=== PATIENT | female | born 1970 | race Caucasian/White ===

== ENCOUNTER 2017-10-21 12:04 | Emergency (ER) | payer BC ==
[~2017-10-21] VITALS: Ht 160 cm; Wt 100.0 kg
[~2017-10-21 12:04] MED LIST: DILANTIN100 MG PO; DIOVAN HCT 3201 EACH PO; FLOMAX0.4 MG PO; FLURBIPROFEN PO; IBUPROFEN800 MG PO; KEPPRA500 MG PO; LOSARTAN-HCTZ1 EAC1 PO; NAPROSYN500 MG PO; PEN-VEE K,VEET500 MG PO; PERCOCET 5/31 TABLET PO; PHENOBARBITAL100 MG; PHENOBARBITAL100 MG PO; PHENOBARBITAL32.4 MG PO; ROBITUSSIN AC,T10 ML PO; SERTRALINE HCL100 MG PO; SPIRONOLACTONE25 MG PO; TRAMADOL HCL50 MG PO; ZOFRAN ODT4 MG PO; ZOLOFT100 MG PO
[2017-10-21 12:56] LABS: HEMATOCRIT 40.3 % (36.0-46.0); HEMOGLOBIN 13.4 G/DL (11.9-15.5); MCH 27.5 PG (29.0-34.0); MCHC 33.3 G/DL (30.0-36.0); MCV 82.8 FL (83-99); PLATELET COUNT 280 K/uL (156-360); RBC DIS.WIDTH-CV 13.2 % (11.8-14.6); RBC DIS.WIDTH-SD 40.1 % (39-53); RED BLOOD COUNT 4.87 M/uL (3.80-5.20)
[2017-10-21 13:09] LABS: CHLORIDE 104 mEq/L (99-109); POTASSIUM 4.1 mEq/L (3.7-5.4); SODIUM 135 mEq/L (136-147)
[2017-10-21 13:11] LABS: GLUCOSE 118 mg/dL (70-99)
[2017-10-21 13:15] LABS: CREATININE 0.7 mg/dL (0.6-1.3); GFR ESTIMATE (CALCULATED) > 59 mL/min/
[2017-10-21 13:16] LABS: UREA NITROGEN (BUN) 20 mg/dL (9-23)
[2017-10-21 14:53] LABS: APPEARANCE CLOUDY ((CLEAR)); BILIRUBIN NEGATIVE; BLOOD SMALL; COLOR YELLOW ((YELLOW)); GLUCOSE (STRIP) NEGATIVE; KETONES NEGATIVE; LEUKOCYTES LARGE; NITRITE POSITIVE; PROTEIN (STRIP) 30; SPECIFIC GRAVITY 1.028 (1.000-1.030); UROBILINOGEN 0.2 MG/DL (0.2-1.0)
[2017-10-21 15:24] LABS: EPITHELIAL CELLS 2+ /HPF; WHITE BLOOD CELLS 20-30 /HPF (0-5)
[2017-10-21 15:25] LABS: BACTERIA 1+ /HPF; MUCUS 2+ /LPF; UCUL ADDED? YES
[2017-10-21] MEDS ORDERED: ZOFRAN ODT8 MG PO (16:40)
[2017-10-21] MEDS ORDERED: KEFLEX500 MG PO (16:55)
[2017-10-21 17:07] VITALS: BP 180/112
== END 2017-10-21 17:08 | disposition home or self-care (01) ==
LOC: EME 12:04
PROVIDERS: Physician Assistant
DX: R11.2 Nausea with vomiting, unspecified (principal); N39.0 Urinary tract infection, site not specified; K21.9 Gastro-esophageal reflux disease without esophagitis; I10 Essential (primary) hypertension; R56.9 Unspecified convulsions; F41.9 Anxiety disorder, unspecified; F32.9 Major depressive disorder, single episode, unspecified; Z87.891 Personal history of nicotine dependence; Z86.011 Personal history of benign neoplasm of the brain; Z90.49 Acquired absence of other specified parts of digestive tract; Z88.8 Allergy status to other drugs, medicaments and biological substances
CPT/HCPCS: 71020; 80048; 81003; 85027; 87077; 87086; 87186; 99281; 99284

== ENCOUNTER 2017-11-04 20:44 | Emergency (ER) | payer BC ==
[~2017-11-04] VITALS: Ht 160 cm; Wt 99.9 kg
[~2017-11-04 20:44] MED LIST changes: +KEFLEX500 MG PO; +ZOFRAN ODT8 MG PO
[2017-11-04 21:21] LABS: HEMATOCRIT 38.7 % (36.0-46.0); HEMOGLOBIN 12.8 G/DL (11.9-15.5); MCH 27.4 PG (29.0-34.0); MCHC 33.1 G/DL (30.0-36.0); MCV 82.9 FL (83-99); PLATELET COUNT 312 K/uL (156-360); RBC DIS.WIDTH-CV 13.1 % (11.8-14.6); RBC DIS.WIDTH-SD 39.4 % (39-53); RED BLOOD COUNT 4.67 M/uL (3.80-5.20); WHITE BLOOD COUNT 8.9 K/uL (4.1-10.2)
[2017-11-04 21:26] LABS: APPEARANCE CLEAR ((CLEAR)); BILIRUBIN NEGATIVE; BLOOD NEGATIVE; COLOR YELLOW ((YELLOW)); GLUCOSE (STRIP) NEGATIVE; KETONES NEGATIVE; LEUKOCYTES NEGATIVE; NITRITE NEGATIVE; PROTEIN (STRIP) NEGATIVE; SPECIFIC GRAVITY 1.009 (1.000-1.030); UCUL ADDED? NO; UROBILINOGEN 0.2 MG/DL (0.2-1.0)
[2017-11-04 21:27] LABS: ALBUMIN 4.1 g/dL (3.2-4.8)
[2017-11-04 21:28] LABS: CHLORIDE 106 mEq/L (99-109); POTASSIUM 3.6 mEq/L (3.7-5.4); SODIUM 138 mEq/L (136-147)
[2017-11-04 21:30] LABS: GLUCOSE 124 mg/dL (70-99); TOTAL PROTEIN 7.3 g/dL (6.4-8.3)
[2017-11-04 21:32] LABS: TOTAL BILIRUBIN 0.2 mg/dL (0.0-1.0)
[2017-11-04 21:33] LABS: ALKALINE PHOSPHATASE 152 IU/L (3-129)
[2017-11-04 21:34] LABS: CREATININE 0.8 mg/dL (0.6-1.3); GFR ESTIMATE (CALCULATED) > 59 mL/min/
[2017-11-04 21:35] LABS: AST (GOT) 17 IU/L (2-34); UREA NITROGEN (BUN) 16 mg/dL (9-23)
[2017-11-04 21:37] LABS: ALT (GPT) 22 IU/L (3-49)
[2017-11-04 21:45] LABS: QUANTITATIVE HCG < 4.0 MIU/ML
[2017-11-05] MEDS ORDERED: CIPRO500 MG PO (00:15)
[2017-11-05] MEDS ORDERED: FLAGYL500 MG PO (00:15)
[2017-11-05 00:51] VITALS: BP 150/100
== END 2017-11-05 00:52 | disposition home or self-care (01) ==
LOC: EME 20:44
DX: K57.92 Diverticulitis of intestine, part unspecified, without perforation or abscess without bleeding (principal); K21.9 Gastro-esophageal reflux disease without esophagitis; I10 Essential (primary) hypertension; F41.9 Anxiety disorder, unspecified; F32.9 Major depressive disorder, single episode, unspecified; R56.9 Unspecified convulsions; Z90.49 Acquired absence of other specified parts of digestive tract; Z87.891 Personal history of nicotine dependence; Z88.5 Allergy status to narcotic agent
CPT/HCPCS: 74177; 80053; 81003; 84702; 85027; 99281; 99285; J7040

== ENCOUNTER 2017-12-09 20:23 | Emergency (ER) | payer BC ==
[~2017-12-09] VITALS: Ht 160 cm; Wt 101.2 kg
[~2017-12-09 20:23] MED LIST changes: +CIPRO500 MG PO; +FLAGYL500 MG PO
[2017-12-09] MEDS ORDERED: PREDNISONE20 MG PO (23:22)
[2017-12-09] MEDS ORDERED: VENTOLIN HFA18 GM IH (23:22)
[2017-12-09 23:28] VITALS: BP 175/118
== END 2017-12-09 23:29 | disposition home or self-care (01) ==
LOC: EME 20:23
PROVIDERS: Nurse Practitioner Family
DX: J10.1 Influenza due to other identified influenza virus with other respiratory manifestations (principal); I10 Essential (primary) hypertension; K21.9 Gastro-esophageal reflux disease without esophagitis; G40.909 Epilepsy, unspecified, not intractable, without status epilepticus; F41.9 Anxiety disorder, unspecified; F32.9 Major depressive disorder, single episode, unspecified; Z87.891 Personal history of nicotine dependence; Z86.011 Personal history of benign neoplasm of the brain; Z90.49 Acquired absence of other specified parts of digestive tract; Z88.5 Allergy status to narcotic agent; Z88.6 Allergy status to analgesic agent; Z88.8 Allergy status to other drugs, medicaments and biological substances
CPT/HCPCS: 71046; 87502; 99281; 99284

== ENCOUNTER 2018-01-11 15:43 | Observation (INO) | payer BC ==
[~2018-01-11] VITALS: Ht 160 cm; Wt 100.1 kg
[~2018-01-11 15:43] MED LIST changes: +HYZAAR 100-11 TABLET PO; -LOSARTAN-HCTZ1 EAC1 PO; +PREDNISONE20 MG PO; +VENTOLIN HFA18 GM IH
[2018-01-11] MEDS ORDERED: FLONASE16 G1 BOTH NARES (16:59)
[2018-01-11 17:52] LABS: HEMATOCRIT 39.3 % (36.0-46.0); HEMOGLOBIN 13.2 G/DL (11.9-15.5); MCH 28.1 PG (29.0-34.0); MCHC 33.6 G/DL (30.0-36.0); MCV 83.8 FL (83-99); PLATELET COUNT 268 K/uL (156-360); RBC DIS.WIDTH-CV 13.9 % (11.8-14.6); RBC DIS.WIDTH-SD 42.3 % (39-53); RED BLOOD COUNT 4.69 M/uL (3.80-5.20); WHITE BLOOD COUNT 10.6 K/uL (4.1-10.2)
[2018-01-11 18:04] LABS: CHLORIDE 102 mEq/L (99-109); POTASSIUM 3.8 mEq/L (3.7-5.4); SODIUM 135 mEq/L (136-147)
[2018-01-11 18:05] LABS: GLUCOSE 114 mg/dL (70-99)
[2018-01-11 18:09] LABS: CREATININE 0.6 mg/dL (0.6-1.3); GFR ESTIMATE (CALCULATED) > 59 mL/min/
[2018-01-11 18:10] LABS: UREA NITROGEN (BUN) 14 mg/dL (9-23)
[2018-01-11 23:01] VITALS: BP 148/85
[2018-01-11 23:25] LABS: HDL CHOLESTEROL 46 MG/DL (Desirable>=50); LDL CHOLESTEROL 86 mg/dL (Desirable<100); NON-HDL CHOLESTEROL 111 mg/dL (Desirable<160); TOTAL CHOLESTEROL 157 mg/dL (Desirable<200); TRIGLYCERIDES 124 MG/DL (Normal: <150)
[2018-01-12 04:32] VITALS: BP 127/73
[2018-01-12 08:13] VITALS: BP 130/80
[2018-01-12 08:46] LABS: THYROTROPIN (TSH) 0.39 MIU/L (0.4-5.5)
[2018-01-12 10:02] LABS: HEMOGLOBIN A1c (GLYCOHEMOGLOB) 5.5 % (Below 5.7)
[2018-01-12] MEDS ORDERED: ATORVASTATIN CA40 MG PO (12:13)
[2018-01-12] MEDS ORDERED: ASPIR-LOW81 MG PO (12:14)
[2018-01-12 12:47] VITALS: BP 147/70
== END 2018-01-12 14:18 | disposition home or self-care (01) ==
LOC: EME 15:43 → 5WEST 21:55 → EDOF 21:55 → ENRESERV 21:59 → 5WEST 22:50
PROVIDERS: Physician Assistant Medical
DX: G45.9 Transient cerebral ischemic attack, unspecified (principal); I10 Essential (primary) hypertension; G40.909 Epilepsy, unspecified, not intractable, without status epilepticus; G43.909 Migraine, unspecified, not intractable, without status migrainosus; I45.10 Unspecified right bundle-branch block; Z86.011 Personal history of benign neoplasm of the brain; Z87.891 Personal history of nicotine dependence; K21.9 Gastro-esophageal reflux disease without esophagitis; E66.9 Obesity, unspecified; Z68.39 Body mass index [BMI] 39.0-39.9, adult; F41.9 Anxiety disorder, unspecified; F32.9 Major depressive disorder, single episode, unspecified; Z82.49 Family history of ischemic heart disease and other diseases of the circulatory system; Z83.3 Family history of diabetes mellitus; Z90.49 Acquired absence of other specified parts of digestive tract; Z91.010 Allergy to peanuts; Z91.018 Allergy to other foods; Z88.5 Allergy status to narcotic agent
CPT/HCPCS: 70450; 70551; 80048; 80061; 80185; 83036; 84439; 84443; 85027; 93005; 99281; 99285; G0378; J1885; J2405

== ENCOUNTER 2018-04-27 07:27 | Day surgery (SDC) | payer BC ==
[~2018-04-27] VITALS: Ht 160 cm; Wt 99.8 kg
[~2018-04-27 07:27] MED LIST changes: +APPLE CIDER VI600 MG PO; +ASPIR-LOW81 MG PO; +ATORVASTATIN CA40 MG PO; +FLONASE16 G1 BOTH NARES; +LO-DOSE ASPIRIN81 M1 PO; +NORVASC10 MG PO; +TYLENOL EXTRA500 MG PO
[2018-04-27 08:18] VITALS: BP 155/88
[2018-04-27] MEDS ORDERED: PERCOCET 5/31 TABLET PO (11:56)
[2018-04-27 13:23] VITALS: BP 120/68
[2018-04-27 13:52] VITALS: BP 132/86
== END 2018-04-27 14:00 | disposition home or self-care (01) ==
LOC: SDC 07:27
PROC: 0DBQ0ZZ Excision of Anus, Open Approach (ICD-10-PCS; principal; 2018-04-27)
DX: K60.3 Anal fistula (principal); K64.4 Residual hemorrhoidal skin tags; I10 Essential (primary) hypertension; J45.909 Unspecified asthma, uncomplicated; I45.10 Unspecified right bundle-branch block; F41.1 Generalized anxiety disorder; G40.909 Epilepsy, unspecified, not intractable, without status epilepticus; Z88.8 Allergy status to other drugs, medicaments and biological substances; Z87.891 Personal history of nicotine dependence; Z79.82 Long term (current) use of aspirin; Z91.018 Allergy to other foods; E66.9 Obesity, unspecified; Z68.39 Body mass index [BMI] 39.0-39.9, adult
CPT/HCPCS: 88304; J0690; J1100; J2250; J2405; J2710; J3010; J7643